=== PATIENT | female | born 1945 | race Caucasian/White ===

== ENCOUNTER 2018-05-15 20:46 | Emergency (ER) | payer OTHER ==
[~2018-05-15] VITALS: Ht 157.5 cm; Wt 56.7 kg
[2018-05-15 20:50] VITALS: BP 136/77
--- NOTE | 2018-05-15 20:53 | NUR ---
TO LOBBY A/W BED, AMBULATORY, VSS, FOREIGN NOTED
--- NOTE | 2018-05-15 22:07 | NUR ---
PT TAKEN TO RADIOLOGY FROM REGINA TRINH
--- NOTE | 2018-05-15 22:27 | NUR ---
PT TAKEN TO BED 8
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
--- NOTE | 2018-05-15 22:41 | NUR ---
Dr. Gutierrez evaluating patient at bedside.
[2018-05-15] MEDS ORDERED: ACETAMINOPHEN EXTRA STRENGTH 500 MG TAB PO ONE (22:50)
[2018-05-15 23:20] VITALS: BP 136/77
== END 2018-05-15 23:20 | disposition home or self-care (01) ==
LOC: MED 20:46
DX: S13.4XXA Sprain of ligaments of cervical spine, initial encounter (principal); Z88.0 Allergy status to penicillin; V43.62XA Car passenger injured in collision with other type car in traffic accident, initial encounter; Y93.19 Activity, other involving water and watercraft; Y92.488 Other paved roadways as the place of occurrence of the external cause; Y99.8 Other external cause status
CPT/HCPCS: 72040; 72100; 99284

== ENCOUNTER 2019-11-09 16:13 | Emergency (ER) | payer OTHER ==
[~2019-11-09] VITALS: Ht 152.4 cm; Wt 59.9 kg
[2019-11-09 16:43] VITALS: BP 136/66
--- NOTE | 2019-11-09 18:14 | NUR ---
FLU SWAB COLLECTED
--- NOTE | 2019-11-09 18:42 | NUR ---
PT IN LOBBY, NO SIGNS OF DISTRESS.
--- NOTE | 2019-11-09 18:53 | NUR ---
PATIENT AMBULATED WITH STEADY GAIT TO BED 5.
[2019-11-09 19:24] VITALS: BP 136/66
--- NOTE | 2019-11-09 19:27 | NUR ---
74 Y/O F WITH C/O COUGH X 1 MONTH. PT STATES WAS IN THE ED YESTERDAY AND ADMITTED FOR INFLUENZA/PNEUMONIA. PT WAS ADIVSED TO COME INTO THE ED TODAY TO BE CHECKED FOR INFLUENZA WELL. PT LUNG SOUNDS CLEAR, COUGH IS NON PRODUCTIVE. PT POSITIONED FOR COMFORT.
--- NOTE | 2019-11-09 19:28 | NUR ---
DR HERNÁNDEZ AT BEDSIDE EXAMINING PATIENT.
--- NOTE | 2019-11-09 19:59 | NUR ---
Patient discharged with v/s stable. Written and verbal after care instructions given and explained. Patient alert, oriented and verbalized understanding of instructions. Ambulatory with steady gait. All questions addressed prior to discharge. ID band removed. Patient advised to follow up with PMD. Rx of TAMIFLU, TESSALON PERLES, AZITHROMYCIN given. Patient educated on indication of medication including possible reaction and side effects. Opportunity to ask questions provided and answered.
== END 2019-11-09 19:59 | disposition home or self-care (01) ==
LOC: MED 16:13
DX: J10.1 Influenza due to other identified influenza virus with other respiratory manifestations (principal); J20.9 Acute bronchitis, unspecified
CPT/HCPCS: 71045; 87804; 99284; Q0092

== ENCOUNTER 2022-04-15 15:02 | Inpatient (IN) | payer OTHER ==
[~2022-04-15] VITALS: Ht 144.8 cm; Wt 71.2 kg
[2022-04-15 15:08] VITALS: BP 154/76
--- NOTE | 2022-04-15 15:50 | NUR ---
76 Y/O C/O NAUSEA X 3 WEEKS. REPORTS TAKING HOME COVID TEST WITH POSITIVE RESULT ON TUESDAY. ALSO C/O BODY ACHES, FATIGUE, LOWER EXTREMITY WEAKNESS, COUGH, NAUSEA WITHOUT VOMITING. DISCOMFORT IN BOTH ARMS. REPORTS HAVING TELEHEALTH VISIT ON TUESDAY AND WAS PRESCRIBED TESSALON PEARLES FOR COUGH AND AMOXICILLIN UNSURE OF INDICATION. PMH: HTN, HLD ALL: PCN
--- NOTE | 2022-04-15 16:13 | NUR ---
Dr Marc at bedside for evaluation
[2022-04-15] MEDS ORDERED: NACL 0.9% 1,000 ML IV ONE (16:40)
[2022-04-15] MEDS ORDERED: ONDANSETRON 4 MG/2 ML VIAL IVP ONE (16:40)
--- NOTE | 2022-04-15 16:45 | NUR ---
LAB AT BEDSIDE
--- NOTE | 2022-04-15 16:50 | NUR ---
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
[2022-04-15 16:58] LABS: BASOPHILS % (AUTO) 0.4 % (0.0-2.0); HEMATOCRIT 36.8 % (36-48); LYMPHOCYTES # (AUTO) 0.9 K/uL (2.5-16.5); LYMPHOCYTES % (AUTO) 24.6 % (20.5-51.1); MEAN CORPUSCULAR HEMOGLOBIN 32 pg (27-31); MEAN CORPUSCULAR HGB CONC 35 g/dL (33-37); MEAN CORPUSCULAR VOLUME 91.1 fL (80-94); MONOCYTES # (AUTO) 0.6 K/uL (0.8-1.0); NEUTROPHILS # (AUTO) 2.2 K/uL (1.8-7.7); PLATELET COUNT (AUTO) 262 K/uL (140-450); RED BLOOD CELL COUNT(AUTO) 4.04 MIL/uL (4.20-5.40); RED CELL DISTRIBUTION WIDTH 13.7 % (11.6-13.7); WHITE BLOOD COUNT (AUTO) 3.7 K/uL (4.8-10.8)
--- NOTE | 2022-04-15 17:04 | NUR ---
Xray at bedside
[2022-04-15 17:07] LABS: CARBON DIOXIDE 29.8 mmol/L (21-32); CHLORIDE 81 mmol/L (98-107); CREATININE 0.4 mg/dL (0.6-1.3); GLUCOSE 124 mg/dL (74-106); POTASSIUM 3.8 mmol/L (3.5-5.1); UREA NITROGEN, BLOOD 9 mg/dL (7-18)
[2022-04-15 17:09] LABS: SODIUM SERUM 116 mmol/L (136-145)
--- NOTE | 2022-04-15 17:30 | NUR ---
pt ambulated to restroom with steady gate. Assisted back to bed, call light in reach, bed in low. All needs met at this time.
[2022-04-15 17:44] LABS: MAGNESIUM 1.8 mg/dL (1.8-2.4); PHOSPHORUS 2.7 mg/dL (2.5-4.9)
[2022-04-15] MEDS ORDERED: ASPI-1129 PO (18:00)
[2022-04-15] MEDS ORDERED: AMOX500C25 PO (18:00)
[2022-04-15] MEDS ORDERED: AMLO5TAB PO (18:00)
[2022-04-15] MEDS ORDERED: HYDR25TA32 PO (18:00)
[2022-04-15] MEDS ORDERED: SIMV10TA1 PO (18:00)
[2022-04-15] MEDS ORDERED: CARV6.25 PO (18:00)
[2022-04-15] MEDS ORDERED: LISI30TA6 PO (18:00)
[2022-04-15] MEDS ORDERED: BENZ100C6 PO (18:00)
--- NOTE | 2022-04-15 18:38 | NUR ---
patients own meds reconciled and taken to pharmacy
[2022-04-15] MEDS ORDERED: HYDROcodone/APAP 5/325 MG 1 TAB TAB PO PRN (18:40)
[2022-04-15] MEDS ORDERED: KCL 20 MEQ/WATER INJ PREMIX 200 ML IV PRN (18:40)
[2022-04-15] MEDS ORDERED: ACETAMINOPHEN 325 MG TAB PO PRN (18:40)
[2022-04-15] MEDS ORDERED: MAG SULF 2000 MG/WATER PREMIX 50 ML IV PRN (18:40)
[2022-04-15] MEDS ORDERED: ONDANSETRON 4 MG/2 ML VIAL IVP PRN (18:40)
[2022-04-15] MEDS ORDERED: MAGNESIUM OXIDE 400 MG TAB PO PRN (18:40)
[2022-04-15] MEDS ORDERED: MORPHINE SULFATE 2 MG/ML SYR IVP PRN (18:45)
--- NOTE | 2022-04-15 19:24 | NUR ---
Pt report given to NAY Knox. Transfer of care at this time.
[2022-04-15] MEDS: NACL 0.9% 1,000 ML IV SCH (19:36)
--- NOTE | 2022-04-15 19:36 | NUR ---
PT IS AWAKE AND ALERT. AMBULATED TO FOR URINE COLLECTION AND BACK TO BED. ALL NEEDS MET AT THIS TIME
[2022-04-15 19:52] LABS: APPEARANCE,URINE CLEAR (CLEAR); BILIRUBIN,URINE NEGATIVE (NEGATIVE); BLOOD, URINE TRACE-I (NEGATIVE); COLOR,URINE YELLOW (YELLOW); LEUKOCYTE ESTERASE ,URINE NEGATIVE (NEGATIVE); NITRITE, URINE NEGATIVE (NEGATIVE); UGLUCOSE NEGATIVE (NEGATIVE)
--- NOTE | 2022-04-15 19:59 | NUR ---
PT PROVIDED WITH FOOD PER REQUEST.
[2022-04-15 20:06] LABS: OTHER CASTS, URINE None Seen /LPF (None Seen); RBC,URINE 0-5 /HPF (0-5); WBC,URINE 0-5 /HPF (0-5)
--- NOTE | 2022-04-15 20:53 | NUR ---
PT CONSUMED 100% OF FOOD.
--- NOTE | 2022-04-15 21:24 | NUR ---
called vamshi guevara for report. stated she will call back
--- NOTE | 2022-04-15 21:36 | NUR ---
report give to vamshi guevara.
--- NOTE | 2022-04-15 21:40 | NUR ---
Patient will be admitted to care of . Admited to tele. Will go to [id number]. Belongings list completed. Report to vamshi guevara.
--- NOTE | 2022-04-15 22:00 | NUR ---
PT ARRIVED ON MST UNIT FROM ER VIA GURNEY. RECEIVED BEDSIDE REPORT FROM LE ER NURSE FOR CONTINUITY OF CARE.PT IS STABLE COVID + DESPITE HAVING THREE MODERNA VACCINES. CC:N/V, DIARRHEA X3 WEEKS. DX:HYPONATREMIA. PT IS A&OX4. DENIES PAIN. ON RM AIR/O2 WITH NO ACUTE DISTRESS. RR EVEN AND UNLABORED WITH EQUAL CHEST RISE. GI INTACT NO C/O N/V OR DIARRHEA. PT IS AMBULATORY AND CONTINENT. ALL SAFETY MEASURES IN PLACE. CALL LIGHT WITHIN REACH. WILL CONTINUE TO MONITOR.
[2022-04-16] VITALS: BP 127/62
[2022-04-16 04:00] VITALS: BP 156/60
[2022-04-16 04:13] LABS: BASOPHILS % (AUTO) 0.3 % (0.0-2.0); EOSINOPHILS % (AUTO) 0.1 % (0.0-4.0); HEMATOCRIT 34.4 % (36-48); HEMOGLOBIN 12.1 g/dL (12.0-16.0); LYMPHOCYTES # (AUTO) 1.7 K/uL (2.5-16.5); LYMPHOCYTES % (AUTO) 47.9 % (20.5-51.1); MEAN CORPUSCULAR HEMOGLOBIN 32 pg (27-31); MEAN CORPUSCULAR HGB CONC 35 g/dL (33-37); MEAN CORPUSCULAR VOLUME 90.7 fL (80-94); MONOCYTES # (AUTO) 0.8 K/uL (0.8-1.0); MONOCYTES % (AUTO) 21.5 % (1.7-9.3); NEUTROPHILS # (AUTO) 1.1 K/uL (1.8-7.7); NEUTROPHILS % (AUTO) 30.2 % (42.2-75.2); PLATELET COUNT (AUTO) 253 K/uL (140-450); RED BLOOD CELL COUNT(AUTO) 3.79 MIL/uL (4.20-5.40); RED CELL DISTRIBUTION WIDTH 13.3 % (11.6-13.7); WHITE BLOOD COUNT (AUTO) 3.6 K/uL (4.8-10.8)
[2022-04-16 04:36] LABS: ANION GAP 8.9 (8-16); ASPARTATE AMINOTRANSFERASE 24 U/L (15-37); CARBON DIOXIDE 30.2 mmol/L (21-32); CHLORIDE 98 mmol/L (98-107); CREATININE 0.4 mg/dL (0.6-1.3); GLUCOSE 88 mg/dL (74-106); MAGNESIUM 1.9 mg/dL (1.8-2.4); POTASSIUM 3.1 mmol/L (3.5-5.1); SODIUM SERUM 134 mmol/L (136-145); TOTAL BILIRUBIN 0.2 mg/dL (0.0-1.0); UREA NITROGEN, BLOOD 7 mg/dL (7-18)
[2022-04-16] MEDS: POTASSIUM CHLORIDE 10 MEQ TABER PO PRN ×2 (05:24→09:42)
--- NOTE | 2022-04-16 06:54 | NUR ---
ENDORSE REPORT TO DAY SHIFT RN FOR CONTINUITY OF CARE. K= 3.1 COVERED WITH 40MEQ K DUR PO PER PROTOCOL AT 0525. IVF NS @80CC/HR INFUSING INTO RAC 20G IV.PT AMBULATES. HAS BATHROOM PRIVILEGES. IS GETTING SODIUM LAB DRAWN Q 4HRS. ADMITTING DX:HYPONATREMIA. PT IS ON DROPLET ISOLATION COVID-19 + DESPITE BEING FULLY VACCINATED WITH MODERNA. ALL SAFETY MEASURES IN PLACE. CALL LIGHT WITHIN REACH . WILL CONTINUE TO MONITOR.
[2022-04-16] MEDS: NACL 0.9% 1,000 ML IV SCH (07:35)
--- NOTE | 2022-04-16 07:35 | NUR ---
RECEIVED REPORT FROM PHYSICAL PLANT EMPLOYEE FOR CONTINUITY CARE. PT IS ALERT AND ORIENTED X4, RESTING ON BED, RESPIRATION EVEN, UNLABORED, NO DISTRESS NOTED. POINT OF CARE DISCUSSED, ALL SAFETY MEASURE IN PLACE, CALL LIGHT WITHIN REACH, WILL CONTINUE TO MONITOR.
[2022-04-16 08:00] VITALS: BP 144/65
--- NOTE | 2022-04-16 08:41 | NUR ---
PATIENT HAS BEEN SCREENED AND CATEGORIZED HIGH NUTRITION RISK. PATIENT WILL BE SEEN WITHIN 1-2 DAYS OF ADMISSION. / REFERRAL RECEIVED FOR NAUSEA/VOMITING/DIARRHEA OVER THREE DAYS AND UNINTENTIONAL WEIGHT LOSS/DECREASED APPETITE NUVIA [address]
--- NOTE | 2022-04-16 09:42 | NUR ---
PT WAS GIVEN KDUR 40 MEQ PO FOR POTASSIUM LEVEL OF 3.3. EDUCATION WAS PROVIDED AND PT VERBALIZED UNDERSTANDING.
[2022-04-16] MEDS: DEXTROSE 5% 1,000 ML IV SCH ×2 (11:41→15:13)
[2022-04-16 12:00] VITALS: BP 159/66
[2022-04-16 12:14] LABS: ANION GAP 9.7 (8-16); CARBON DIOXIDE 29.6 mmol/L (21-32); CHLORIDE 100 mmol/L (98-107); CREATININE 0.4 mg/dL (0.6-1.3); GLUCOSE 78 mg/dL (74-106); POTASSIUM 3.3 mmol/L (3.5-5.1); SODIUM SERUM 136 mmol/L (136-145); UREA NITROGEN, BLOOD 7 mg/dL (7-18)
--- NOTE | 2022-04-16 12:20 | NUR ---
MEDICATION ADMINISTERED AT THIS TIME PER MD ORDER, PT IS ALERT AND ORIENTED X4, RESTING ON BED COMFORTABLY, NO DISTRESS NOTED. CALL LIGHT WITHIN REACH, WILL CONTINUE TO MONITOR.
[2022-04-16] MEDS ORDERED: DESMOPRESSIN 4 MCG/ML AMP SUBQ SCH (13:00)
--- NOTE | 2022-04-16 14:21 | NUR ---
DC PLANN[age] YRS OLD FEMALE PATIENT WAS ADMITTED FROM HOME WITH A DX OF HYPONATREMIA. RAPID COVID TEST POSITIVE CXR NEGATIVE ON ROOM AIR SATING 98% NA+LEVEL ON ADMISSION 116 ADMINISTERED IVF AND SODIUM LEVEL 134. CONSULTED WITH NEPHRO. DC PLAN TO GO HOME WHEN STABLE. CM TO FOLLOW
[2022-04-16] MEDS ORDERED: BENZONATATE 100 MG CAPLF PO PRN (14:30)
[2022-04-16 15:17] LABS: ANION GAP 8.1 (8-16); CARBON DIOXIDE 29.8 mmol/L (21-32); CHLORIDE 96 mmol/L (98-107); CREATININE 0.3 mg/dL (0.6-1.3); GLUCOSE 93 mg/dL (74-106); POTASSIUM 3.9 mmol/L (3.5-5.1); SODIUM SERUM 130 mmol/L (136-145); UREA NITROGEN, BLOOD 10 mg/dL (7-18)
[2022-04-16 16:00] VITALS: BP 134/59
--- NOTE | 2022-04-16 17:53 | NUR ---
INFORMED DR. AZUL THAT THE SODIUM LEVEL IS NOW 127. NA IS TRENDING BACK DOWN WITH THE D5W FLUIDS RUNNING AT 250 ML/HR PER NEPHRO. WILL WAIT FOR RESPONSE.
--- NOTE | 2022-04-16 18:13 | NUR ---
SPOKE TO DR. AZUL SOFTWARE SUPPORT ENGINEER AND HE GAVE ORDER TO STOP D5W AT 250 ML/HR. HE STATED NO FLUIDS AND TO SALINE LOCK. HE ALSO ORDERED TO RECHECK BMP IN 2 HOURS.
--- NOTE | 2022-04-16 19:07 | NUR ---
POINT OF CARE DISCUSSED WITH ASSOCIATE DIRECTOR OF DEVELOPMENT FOR CONTINUE CARE.
--- NOTE | 2022-04-16 19:20 | NUR ---
RECEIVED PATIENT FROM AM NURSE FOR CONTINUITY OF CARE.PT IS STABLE
[2022-04-16 20:00] VITALS: BP 131/63
[2022-04-16 20:15] LABS: CREATININE,URINE RANDOM 5 mg/dL (30-125); URINE SODIUM, RANDOM 22 mmol/l (40-220)
[2022-04-16 20:43] LABS: ANION GAP 10.3 (8-16); CHLORIDE 90 mmol/L (98-107); CREATININE 0.3 mg/dL (0.6-1.3); GLUCOSE 136 mg/dL (74-106); POTASSIUM 4.3 mmol/L (3.5-5.1); SODIUM SERUM 122 mmol/L (136-145); UREA NITROGEN, BLOOD 11 mg/dL (7-18)
--- NOTE | 2022-04-16 21:30 | NUR ---
ALL SCHEDULED MEDICATIONS GIVEN, NO ADVERSE REACTIONS NOTED
[2022-04-17] VITALS: BP 162/74
[2022-04-17 00:45] LABS: CARBON DIOXIDE 25.2 mmol/L (21-32); CHLORIDE 86 mmol/L (98-107); CREATININE 0.3 mg/dL (0.6-1.3); GLUCOSE 93 mg/dL (74-106); POTASSIUM 4.2 mmol/L (3.5-5.1); UREA NITROGEN, BLOOD 10 mg/dL (7-18)
--- NOTE | 2022-04-17 01:00 | NUR ---
LABS CALLED REGARDING SODIUM RESULT OF 118. NOTIFIED DR BUBBA ORDERED CMP IN AM
[2022-04-17 01:01] LABS: SODIUM SERUM 118 mmol/L (136-145)
[2022-04-17 04:00] VITALS: BP 155/68
[2022-04-17 06:12] LABS: HEMATOCRIT 36.1 % (36-48); HEMOGLOBIN 12.7 g/dL (12.0-16.0); MEAN CORPUSCULAR HEMOGLOBIN 32 pg (27-31); MEAN CORPUSCULAR HGB CONC 35 g/dL (33-37); MEAN CORPUSCULAR VOLUME 90.1 fL (80-94); PLATELET COUNT (AUTO) 242 K/uL (140-450); RED CELL DISTRIBUTION WIDTH 13.5 % (11.6-13.7); WHITE BLOOD COUNT (AUTO) 3.6 K/uL (4.8-10.8)
[2022-04-17 06:32] LABS: ALBUMIN 3.3 g/dL (3.4-5.0); ANION GAP 10.7 (8-16); ASPARTATE AMINOTRANSFERASE 28 U/L (15-37); CARBON DIOXIDE 26.3 mmol/L (21-32); CHLORIDE 83 mmol/L (98-107); CREATININE 0.3 mg/dL (0.6-1.3); GLUCOSE 97 mg/dL (74-106); MAGNESIUM 1.5 mg/dL (1.8-2.4); TOTAL BILIRUBIN 0.3 mg/dL (0.0-1.0); UREA NITROGEN, BLOOD 5 mg/dL (7-18)
[2022-04-17 06:46] LABS: SODIUM SERUM 116 mmol/L (136-145)
--- NOTE | 2022-04-17 06:47 | NUR ---
LAB RESULTS CAME IN, JANA Villegas MD NOTIFIED, ORDERED NS 100CC/HR FOR A TOTAL OF 500 CC. WILL ENDORSE TO AM NURSE
[2022-04-17] MEDS ORDERED: NACL 0.9% 1,000 ML IV SCH (07:05)
--- NOTE | 2022-04-17 07:15 | NUR ---
SBAR REPORT RECEIVED FROM NIGHT RN, ALL CARES ASSUMED.
[2022-04-17 08:00] VITALS: BP 153/68
[2022-04-17] MEDS: lisinopriL 20 MG TAB PO SCH (08:27)
[2022-04-17] MEDS: carvediloL 6.25 MG TAB PO SCH (08:27)
[2022-04-17] MEDS: amLODIPine 5 MG TAB PO SCH (08:27)
[2022-04-17 10:27] LABS: ANION GAP 10.3 (8-16); CARBON DIOXIDE 26.4 mmol/L (21-32); CHLORIDE 78 mmol/L (98-107); CREATININE 0.3 mg/dL (0.6-1.3); GLUCOSE 112 mg/dL (74-106); POTASSIUM 3.7 mmol/L (3.5-5.1); UREA NITROGEN, BLOOD 5 mg/dL (7-18)
[2022-04-17 10:29] LABS: SODIUM SERUM 111 mmol/L (136-145)
[2022-04-17 10:35] LABS: BASOPHILS % (AUTO) 0.3 % (0.0-2.0); EOSINOPHILS % (AUTO) 0.3 % (0.0-4.0); LYMPHOCYTES # (AUTO) 1.8 K/uL (2.5-16.5); LYMPHOCYTES % (AUTO) 49.3 % (20.5-51.1); LYMPHOCYTES % (MANUAL) 37 % (20-46); MONOCYTES # (AUTO) 0.6 K/uL (0.8-1.0); MONOCYTES % (AUTO) 17.6 % (1.7-9.3); MONOCYTES % (MANUAL) 20 % (5-12); NEUTROPHILS % (AUTO) 32.5 % (42.2-75.2); PLATELET COUNT,MANUAL 242 K/uL (150-450)
--- NOTE | 2022-04-17 10:44 | NUR ---
(04/17/22) RD INITIAL ASSESSMENT COMPLETED PLEASE REFER TO NUTRITION ASSESSMENT UNDER CARE ACTIVITY FOR ESTIMATED NUTRITIONAL NEEDS. RD RECOMMENDATIONS: 1. CONTINUE REGULAR DIET TOLERATED 2. CONSULT RDN PRN. 3. RD WILL F/U 3-5 DAYS; MODERATE RISK. MALLORY MCGOWAN MS, RDN
[2022-04-17] MEDS ORDERED: NACL 3% 100 ML IV ONE ×2 (11:10→15:30)
[2022-04-17 11:42] LABS: POTASSIUM,URINE RANDOM 21 mmol/L (12-75); URINE SODIUM, RANDOM 93 mmol/l (40-220)
[2022-04-17 12:00] VITALS: BP 142/69
[2022-04-17 15:09] LABS: ANION GAP 11.5 (8-16); CHLORIDE 79 mmol/L (98-107); CREATININE 0.4 mg/dL (0.6-1.3); GLUCOSE 140 mg/dL (74-106); POTASSIUM 3.5 mmol/L (3.5-5.1); UREA NITROGEN, BLOOD 12 mg/dL (7-18)
[2022-04-17 15:15] LABS: SODIUM SERUM 112 mmol/L (136-145)
[2022-04-17 16:00] VITALS: BP 128/68
--- NOTE | 2022-04-17 16:30 | NUR ---
IV CATHETER NOTED TO BE OUT OF ARM. NEW IV INITIATED ON LEFT WRIST 18G. BLOOD RETURN NOTED, FLUSHED WITH NORMAL SALINE.
[2022-04-17] MEDS ORDERED: NACL 3% 300 ML IV ONE (18:50)
--- NOTE | 2022-04-17 19:24 | NUR ---
SBAR REPORT GIVEN TO NIGHT RN, ALL CARES ENDORSED.
[2022-04-17 20:00] VITALS: BP 134/60
--- NOTE | 2022-04-17 22:22 | NUR ---
PATIENT AWAKE ALERT X3 ON ROOM AIR ON MONITOR SINUS WITH BBB. HAS NS 3% INFUSING AT 30 HOUR TO RECEIVE 300CC WAS HUNG AT 1800 TO RUN TIL 300CC INFUSE. TO CALL DR. SHETTY WHEN NA 120. NO C/O OF PAIN.
[2022-04-17 23:26] LABS: ANION GAP 11.8 (8-16); CARBON DIOXIDE 25.6 mmol/L (21-32); CHLORIDE 89 mmol/L (98-107); CREATININE 0.4 mg/dL (0.6-1.3); GLUCOSE 98 mg/dL (74-106); POTASSIUM 3.4 mmol/L (3.5-5.1); SODIUM SERUM 123 mmol/L (136-145); UREA NITROGEN, BLOOD 12 mg/dL (7-18)
[2022-04-17] MEDS ORDERED: POTASSIUM CHLORIDE 10 MEQ TABER PO ONE (23:55)
[2022-04-18] VITALS: BP 130/62
[2022-04-18 04:00] VITALS: BP 155/65
[2022-04-18 04:35] LABS: BASOPHILS % (AUTO) 0.5 % (0.0-2.0); EOSINOPHILS % (AUTO) 0.1 % (0.0-4.0); HEMATOCRIT 37.8 % (36-48); HEMOGLOBIN 13.4 g/dL (12.0-16.0); LYMPHOCYTES # (AUTO) 2.1 K/uL (2.5-16.5); LYMPHOCYTES % (AUTO) 31.8 % (20.5-51.1); MEAN CORPUSCULAR HEMOGLOBIN 32 pg (27-31); MEAN CORPUSCULAR HGB CONC 36 g/dL (33-37); MEAN CORPUSCULAR VOLUME 90.5 fL (80-94); MONOCYTES % (AUTO) 15.9 % (1.7-9.3); NEUTROPHILS # (AUTO) 3.4 K/uL (1.8-7.7); PLATELET COUNT (AUTO) 292 K/uL (140-450); RED BLOOD CELL COUNT(AUTO) 4.18 MIL/uL (4.20-5.40); RED CELL DISTRIBUTION WIDTH 13.4 % (11.6-13.7)
[2022-04-18 04:47] LABS: ALBUMIN 3.2 g/dL (3.4-5.0); ANION GAP 8.8 (8-16); ASPARTATE AMINOTRANSFERASE 24 U/L (15-37); CHLORIDE 95 mmol/L (98-107); CREATININE 0.4 mg/dL (0.6-1.3); GLUCOSE 100 mg/dL (74-106); MAGNESIUM 1.9 mg/dL (1.8-2.4); POTASSIUM 3.8 mmol/L (3.5-5.1); SODIUM SERUM 128 mmol/L (136-145); TOTAL BILIRUBIN 0.3 mg/dL (0.0-1.0); UREA NITROGEN, BLOOD 11 mg/dL (7-18)
[2022-04-18 04:56] LABS: NEUTROPHILS % (AUTO) 51.7 % (42.2-75.2); WHITE BLOOD COUNT (AUTO) 6.5 K/uL (4.8-10.8)
--- NOTE | 2022-04-18 07:24 | NUR ---
SBAR REPORT RECEIVED FROM BETY RN, ALL CARES ASSUMED.
[2022-04-18 08:00] VITALS: BP 160/65
[2022-04-18] MEDS: carvediloL 6.25 MG TAB PO SCH (08:22)
[2022-04-18] MEDS: amLODIPine 5 MG TAB PO SCH (08:22)
[2022-04-18] MEDS: lisinopriL 20 MG TAB PO SCH (08:23)
[2022-04-18 09:14] LABS: ANION GAP 11.7 (8-16); CARBON DIOXIDE 25.8 mmol/L (21-32); CHLORIDE 96 mmol/L (98-107); CREATININE 0.4 mg/dL (0.6-1.3); GLUCOSE 89 mg/dL (74-106); POTASSIUM 3.5 mmol/L (3.5-5.1); SODIUM SERUM 130 mmol/L (136-145); UREA NITROGEN, BLOOD 10 mg/dL (7-18)
[2022-04-18 12:00] VITALS: BP 149/67
[2022-04-18 12:28] LABS: ANION GAP 11.1 (8-16); CARBON DIOXIDE 26.1 mmol/L (21-32); CHLORIDE 96 mmol/L (98-107); CREATININE 0.4 mg/dL (0.6-1.3); GLUCOSE 86 mg/dL (74-106); POTASSIUM 3.2 mmol/L (3.5-5.1); SODIUM SERUM 130 mmol/L (136-145); UREA NITROGEN, BLOOD 14 mg/dL (7-18)
[2022-04-18 16:00] VITALS: BP 152/65
[2022-04-18 17:19] LABS: ANION GAP 13.7 (8-16); CARBON DIOXIDE 25.6 mmol/L (21-32); CHLORIDE 95 mmol/L (98-107); CREATININE 0.4 mg/dL (0.6-1.3); GLUCOSE 79 mg/dL (74-106); POTASSIUM 4.3 mmol/L (3.5-5.1); SODIUM SERUM 130 mmol/L (136-145); UREA NITROGEN, BLOOD 15 mg/dL (7-18)
--- NOTE | 2022-04-18 19:33 | NUR ---
SBAR REPORT GIVEN TO TWYLA TEE, ALL CARES ENDORSED.
[2022-04-18 20:00] VITALS: BP_SYST 149; BP_SYST 158; BP_DIAS 71; BP_DIAS 95
[2022-04-18 21:02] LABS: ANION GAP 12.1 (8-16); CARBON DIOXIDE 27.3 mmol/L (21-32); CHLORIDE 94 mmol/L (98-107); CREATININE 0.5 mg/dL (0.6-1.3); GLUCOSE 167 mg/dL (74-106); POTASSIUM 4.4 mmol/L (3.5-5.1); SODIUM SERUM 129 mmol/L (136-145); UREA NITROGEN, BLOOD 15 mg/dL (7-18)
[2022-04-19 00:22] VITALS: BP 135/60
[2022-04-19 00:57] LABS: ANION GAP 10.2 (8-16); CARBON DIOXIDE 27.7 mmol/L (21-32); CHLORIDE 95 mmol/L (98-107); CREATININE 0.4 mg/dL (0.6-1.3); GLUCOSE 102 mg/dL (74-106); POTASSIUM 3.9 mmol/L (3.5-5.1); SODIUM SERUM 129 mmol/L (136-145); UREA NITROGEN, BLOOD 15 mg/dL (7-18)
[2022-04-19 04:00] VITALS: BP 138/60
[2022-04-19 07:31] LABS: BASOPHILS % (AUTO) 0.2 % (0.0-2.0); EOSINOPHILS % (AUTO) 0.1 % (0.0-4.0); HEMATOCRIT 35.7 % (36-48); HEMOGLOBIN 12.5 g/dL (12.0-16.0); LYMPHOCYTES # (AUTO) 1.7 K/uL (2.5-16.5); LYMPHOCYTES % (AUTO) 27.3 % (20.5-51.1); MEAN CORPUSCULAR HEMOGLOBIN 32 pg (27-31); MEAN CORPUSCULAR HGB CONC 35 g/dL (33-37); MEAN CORPUSCULAR VOLUME 91.3 fL (80-94); MONOCYTES % (AUTO) 16.4 % (1.7-9.3); NEUTROPHILS # (AUTO) 3.5 K/uL (1.8-7.7); PLATELET COUNT (AUTO) 278 K/uL (140-450); RED BLOOD CELL COUNT(AUTO) 3.91 MIL/uL (4.20-5.40); RED CELL DISTRIBUTION WIDTH 13.9 % (11.6-13.7); WHITE BLOOD COUNT (AUTO) 6.3 K/uL (4.8-10.8)
[2022-04-19 07:49] LABS: ALBUMIN 3.1 g/dL (3.4-5.0); ANION GAP 12.4 (8-16); ASPARTATE AMINOTRANSFERASE 21 U/L (15-37); CARBON DIOXIDE 26.8 mmol/L (21-32); CHLORIDE 96 mmol/L (98-107); CREATININE 0.4 mg/dL (0.6-1.3); GLUCOSE 95 mg/dL (74-106); POTASSIUM 4.2 mmol/L (3.5-5.1); SODIUM SERUM 131 mmol/L (136-145); TOTAL BILIRUBIN 0.4 mg/dL (0.0-1.0); UREA NITROGEN, BLOOD 12 mg/dL (7-18)
[2022-04-19 08:00] VITALS: BP 137/66
[2022-04-19] MEDS: carvediloL 6.25 MG TAB PO SCH (10:09)
[2022-04-19] MEDS: lisinopriL 20 MG TAB PO SCH (10:09)
[2022-04-19] MEDS: amLODIPine 5 MG TAB PO SCH (10:10)
--- NOTE | 2022-04-19 10:13 | NUR ---
RECEIVE ENDORSEMENT FROM PM SHIFT NURSE THAT PATIENT IS COVID POSITIVE FOR HYPONATREMIA. PIV AT L. WRIST 20G PATENT. TODAY'S NK=[id number]. AWARE. WILLL CONTINUE TO MONITOR
[2022-04-19 12:00] VITALS: BP 119/72
[2022-04-19 15:22] VITALS: BP 119/72
[2022-04-19 16:00] VITALS: BP 132/61
--- NOTE | 2022-04-19 16:26 | NUR ---
DISCHARGE PATIENT PER PCP ORDER, PATIENT STABLE, COVID POSITIVE; D/C CONSENT SIGNED, NO ACUTE DISTRESS NOTED, ARM BAND & IV ACCESS REMOVED. PATIENT'S NEXT KIN CALLED FOR BIOPHYSICS TEACHER. TEL. MONITOR RETURN TO MONITOR. Addendum: 04/19/22 at 1755 by Malinda Pearl RN CALLING PATIENT'S NEXT KIN AGAIN ACCORDING TO PATIENT PROVIDED PHONE NUMBER (INDRA CROOKS, ([phone]) AND OTHER PART RESPOND THEY WILL BE HERE, HOSPITAL, BIOPHYSICS TEACHER PATIENT AFTER 1800, MAYBE 1900. 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 WILL CONTINUE TO MONITOR.
--- NOTE | 2022-04-19 19:11 | NUR ---
D/C PATIENT PER PCP ORDER AFTER 1800, THEN PATIENT RETURN HOSPITAL AND STATE THAT ALL PHARMACY STATE THAT SHE ONLY HAS TYLENOL. NURSE EXPLAIN THAT MD SEND HER ORDER ELECTRONICALLY TO ONE SPECIFIC PHARMACY THAT NURSE PLACE PAGE ON TOP OF FOLDER. NURSE ALSO BROUGHT OUT PATIENT'S MEDICATION LIST OUT AND POINT OUT THAT WHICH MEDICATION D/C, WHICH MEDICATION CONTINUE.
== END 2022-04-19 18:40 | disposition home or self-care (01) | DRG 640 ==
LOC: MED 15:02 → MTU 18:40
PROVIDERS: ADMIT Internal Medicine; ATTEND Internal Medicine
DX: E87.1 Hypo-osmolality and hyponatremia (principal); U07.1 COVID-19; E78.00 Pure hypercholesterolemia, unspecified; Z88.0 Allergy status to penicillin; Z79.899 Other long term (current) drug therapy; Z90.710 Acquired absence of both cervix and uterus; Z79.82 Long term (current) use of aspirin
CPT/HCPCS: 36415; 71045; 80048; 80053; 81001; 82533; 82570; 83735; 83935; 84100; 84133; 84295; 84300; 84443; 84484; 84550; 85025; 85379; 86140; 87081; 93005; 96361; 96374; 99285; J2405; J2597; J3490

== ENCOUNTER 2022-08-30 09:19 | Emergency (ER) | payer OTHER ==
[~2022-08-30] VITALS: Ht 152.4 cm; Wt 53.5 kg
[~2022-08-30 09:19] MED LIST: AMLO5TAB PO; ASPI-1129 PO; CARV6.25 PO; LISI30TA6 PO; SIMV-371 PO
[2022-08-30 09:23] VITALS: BP 150/80
[2022-08-30 10:35] LABS: APPEARANCE,URINE CLEAR (CLEAR); BILIRUBIN,URINE NEGATIVE (NEGATIVE); BLOOD, URINE 2+ (NEGATIVE); COLOR,URINE YELLOW (YELLOW); LEUKOCYTE ESTERASE ,URINE NEGATIVE (NEGATIVE); NITRITE, URINE NEGATIVE (NEGATIVE); UGLUCOSE TRACE (NEGATIVE)
[2022-08-30 10:52] LABS: RBC,URINE 20-50 /HPF (0-5)
[2022-08-30 12:52] LABS: BASOPHILS % (AUTO) 0.3 % (0.0-2.0); HEMATOCRIT 39.6 % (36-48); HEMOGLOBIN 13.4 g/dL (12.0-16.0); LYMPHOCYTES # (AUTO) 1.6 K/uL (2.5-16.5); LYMPHOCYTES % (AUTO) 14.1 % (20.5-51.1); MEAN CORPUSCULAR HEMOGLOBIN 32 pg (27-31); MEAN CORPUSCULAR HGB CONC 34 g/dL (33-37); MEAN CORPUSCULAR VOLUME 95.1 fL (80-94); MONOCYTES # (AUTO) 0.7 K/uL (0.8-1.0); MONOCYTES % (AUTO) 6.5 % (1.7-9.3); NEUTROPHILS # (AUTO) 8.9 K/uL (1.8-7.7); NEUTROPHILS % (AUTO) 79.1 % (42.2-75.2); PLATELET COUNT (AUTO) 312 K/uL (140-450); RED BLOOD CELL COUNT(AUTO) 4.16 MIL/uL (4.20-5.40); RED CELL DISTRIBUTION WIDTH 13.1 % (11.6-13.7); WHITE BLOOD COUNT (AUTO) 11.3 K/uL (4.8-10.8)
[2022-08-30 13:17] LABS: ALBUMIN 3.7 g/dL (3.4-5.0); ANION GAP 12.9 (8-16); ASPARTATE AMINOTRANSFERASE 28 U/L (15-37); CARBON DIOXIDE 28.2 mmol/L (21-32); CHLORIDE 100 mmol/L (98-107); CREATININE 0.5 mg/dL (0.6-1.3); GLUCOSE 104 mg/dL (74-106); POTASSIUM 4.1 mmol/L (3.5-5.1); SODIUM SERUM 137 mmol/L (136-145); TOTAL BILIRUBIN 0.4 mg/dL (0.0-1.0); UREA NITROGEN, BLOOD 22 mg/dL (7-18)
[2022-08-30] MEDS ORDERED: NITR100C7 PO (13:50)
[2022-08-30] MEDS ORDERED: DEXAMETHASONE 4 MG TAB PO ONE (15:10)
[2022-08-30] MEDS ORDERED: CIPR500T4 PO (16:11)
[2022-08-30] MEDS ORDERED: METR-435 PO (16:11)
[2022-08-30] MEDS ORDERED: DEXAMETHASONE 4 MG TAB ONE ×2 (16:32→16:37)
[2022-08-30] MEDS ORDERED: CRUSHER, PILL MC ONE (16:37)
--- NOTE | 2022-08-30 17:12 | NUR ---
Patient discharged with v/s stable. Written and verbal after care instructions given. Patient alert, oriented and verbalized understanding of instructions. Ambulatory with steady gait. All questions addressed prior to discharge. ID band removed. Patient advised to follow up with PMD. Rx of Cipro and Metronidazole given. Opportunity to ask questions provided and answered.
--- NOTE | 2022-08-30 18:10 | NUR ---
The patient's care was reviewed and supervised by ED Agency Nurse 9, RN, RN.
== END 2022-08-30 17:12 | disposition home or self-care (01) ==
LOC: MED 09:19
DX: N39.0 Urinary tract infection, site not specified (principal); K62.5 Hemorrhage of anus and rectum; I10 Essential (primary) hypertension; Z88.0 Allergy status to penicillin; Z79.899 Other long term (current) drug therapy; Z79.82 Long term (current) use of aspirin
CPT/HCPCS: 36415; 74177; 80053; 81001; 85025; 87086; 99285; Q9967; Q0163

== ENCOUNTER 2024-02-26 08:53 | Emergency (ER) | payer OTHER ==
[~2024-02-26] VITALS: Ht 152.4 cm; Wt 55.3 kg
[~2024-02-26 08:53] MED LIST changes: +CIPR500T4 PO; +METR-435 PO
[2024-02-26 09:22] VITALS: BP 90/44; PULSE 78; RESP 16; TEMP 98.1; O2SAT 98
[2024-02-26] MEDS ORDERED: IBUP-2213 PO (10:24)
[2024-02-26] MEDS ORDERED: PRED50TA2 PO (10:24)
[2024-02-26] MEDS ORDERED: NIRM1TAB9 PO (10:24)
== END 2024-02-26 10:31 | disposition home or self-care (01) ==
LOC: MED 08:53
DX: U07.1 COVID-19 (principal); Z79.899 Other long term (current) drug therapy
CPT/HCPCS: 99283